=== PATIENT | female | born 1960 | race Caucasian/White ===

== ENCOUNTER 2018-11-02 19:04 | Emergency (ER) | payer OTHER ==
[2018-11-02] MEDS ORDERED: TYLENOL PO ONE (23:14)
[2018-11-02] MEDS ORDERED: XYLOCAINE 1%/ EPI 1:100,000 INFILTRATI NR (23:45)
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
--- NOTE | 2018-11-03 03:15 | Cat Scan Report ---
PROCEDURE: CT HEAD/BRAIN WO CON HISTORY: FALL FINDINGS: Unenhanced CT of the brain was performed and demonstrates no acute intracranial hemorrhage, extra-axial fluid collection, midline shift or mass effect. The ventricles and basal cisterns are no t effaced. The mastoid air cells and middle ears appear clear. There is sinus mucosal thickening without acute s inusitis. The bony calvarium appears intact. IMPRESSION: No acute intracranial hemorrhage This document is electronically signed by Mike Lind MD., Nov 03 2018 03:13:20 AM ET
--- NOTE | 2018-11-03 03:16 | Cat Scan Report ---
PROCEDURE: CT CERVICAL SPINE WO CON HISTORY: FALL FINDINGS: Unenhanced CT of the cervical spine was performed and data was reformatted in the sagittal and coronal planes. These images demonstrate no fracture or malalignment of the cervical spine. The prevertebral soft tis sues are within normal limits. The intervertebral disc space heights appear preserved. The pulmonary apices appear clear. IMPRESSION: No fracture is seen in the cervical spine This document is electronically signed by Mike Lind MD., Nov 03 2018 03:15:04 AM ET
[2018-11-03 03:49] VITALS: BP 119/58
== END 2018-11-03 03:49 | disposition home or self-care (01) ==
LOC: ED 19:04
DX: S01.511A Laceration without foreign body of lip, initial encounter (principal); S00.83XA Contusion of other part of head, initial encounter; M62.838 Other muscle spasm; W17.89XA Other fall from one level to another, initial encounter; Y93.89 Activity, other specified; Y92.89 Other specified places as the place of occurrence of the external cause; Y99.8 Other external cause status
CPT/HCPCS: 70450; 72125